=== PATIENT | female | born 1940 | race Caucasian/White ===

== ENCOUNTER 2017-06-02 20:26 | Observation (INO) | payer MEDICARE, BC ==
[~2017-06-02] VITALS: Ht 157.5 cm; Wt 74.8 kg
--- NOTE | ~2017-06-02 | HEMODYNAMI ---
PATIENT:PIERRE GREER MEDICAL RECORD: [id number] : 40 LOCATION:[facility] D.2118 ADMISSION DATE: 06/03/17 Generatedon:06/03/201710:32 Patient name: PIERRE GREER Patient #: [id number] SSN: : 1940 Date of study: 06/03/2017 Page: Of Hemodynamic Procedure Report Patient Data Patient Demographics Procedure consent was obtained First Name: PIERRE Gender: Female Last Name: PERCY : 1940 Patient #: [id number] Age: 76 year(s) Race: Unknown Additional ID: [id number] Contact details Address: [address] [place] [address] State: [place] City: [facility] Zip code: [address] Admission Admission Data Admission Date: 06/03/2017 Admission Time: 1:01 Room #: D.2118 Height (in.): 62 BSA: 1.76 (m2) Height (cm.): 157.48 BMI: 30.24 (kg/m2) Weight (lbs.): 165.35 Weight (kg.): 75 Lab Results Lab Result Date: 06/03/2017 Lab Result Time: 0:00 Biochemistry Name Units Result Min Max BUN mg/dl 17 --(---*)-- 7 18 Creatinine mg/dl 1.3 --(---*)-- 0.6 1.3 CBC Name Units Result Min Max Hematocrit % 38.9 *-(----)-- 42 54 Hemoglobin g/dl 12.7 -*(----)-- 13.5 17.5 Procedure Procedure Types Cath Procedure Diagnostic Procedure [facility] w/Coronaries Sedation Charges Moderate Sedation up to 15 minutes Procedure Description Procedure Date Procedure Date: 06/03/2017 Procedure Start Time: 10:13 Procedure End Time: 10:31 Procedure Staff Name Function Philip Wilks MD Performing Physician Silvia Warren RT Monitor Indra Velazquez RN Nurse Korin Brandan RT Scrub Procedure Data Cath Procedure Fluoroscopy Diagnostic fluoroscopy Total fluoroscopy Time: 1.7 time: 1.7 min min Diagnostic fluoroscopy Total fluoroscopy dose: 411 dose: 411 mGy mGy Contrast Material Contrast Material Type Amount (ml) Isovue 300 47 Entry Location Entry Primary Successful Side Size Upsize Upsize Entry Closure Coronel ccessful Closure Location (Fr) 1 (Fr) 2 (Fr) Remarks Device Remarks Radial Right 6 Fr Mechanical artery Short Compression Femoral Right 5 Fr Exoseal artery Estimated blood loss: 5 ml Diagnostic catheters Device Type Used For End Catheter Placement DIAGNOSTIC [place] 110cm 5 Multi-vessel Fr catheter ([id number]) Angiography Procedure Complications No complications Procedure Medications Medication Administration Route Dosage 0.9% NaCl I.V. 100 ml/hr Oxygen etCO2 Nasal cannula 2 l/min Heparin Flush Bag added to field 2 bags (1000units/500ml NS) Lidocaine 2% added to field 20 Radial Cocktail added to field 1 syringe (Verapomil 2mg/Nitro 400mcg/Heparin 1500units) Zofran I.V. 4 mg Versed I.V. 1 mg Fentanyl I.V. 50 mcg Fentanyl I.V. 25 mcg Versed I.V. 0.5 mg Radial Cocktail I.A. 1 syringe (Verapomil 2mg/Nitro 400mcg/Heparin 1500units) Versed I.V. 0.5 mg Fentanyl I.V. 25 mcg Hemodynamics Rest BSA: 1.76 (m2) HGB: 12.7 (g/dl) O2 Consumption: Estimated: 152.92 (ml/min) O2 Co nsumption indexed: Estimated:86.89 (ml/min/m) Heart Rate: 60 (bpm) Pressure Samples Time Site Value (mmHg) Purpose Heart Use Rate(bpm) 10:25 LV 117/0,12 Snapshot 65 10:26 AO 120/56(82) Pullback 68 10:26 LV 121/12,15 Pullback 68 Gradients Valve Time Site 1 Site 2 Mean SEP/DFP Peak To Heart Use (mmHg) (sec/min) Peak Rate (mmHg) (bpm) Aortic 10:26 LV AO 6 4 1 68 121/12,15 120/56(82) Calculations Valve P-P Mean Valve Index Valve Source Name Gradient Area Flow (cm2) Aortic 1 6 1 6 Snapshots Pre Cath Intra NCS Post Cath Vital Signs Time Heart Resp SPO2 etCO2 NIBP Rhythm Pain Sedation Rate (ipm) (%) (mmHg) (mmHg) Status Level (bpm) 9:57:54 58 19 94 0 122/61(86) NSR 0 (11) 10(A) , No pain 10:02:36 61 14 95 33.3 124/64(93) NSR 0 (11) 10(A) , No pain 10:07:19 58 16 94 0 125/61(93) NSR 0 (11) 10(A) , No pain 10:12:02 60 15 95 9.1 115/63(88) NSR 0 (11) 10(A) , No pain 10:16:42 64 15 95 22 125/65(96) NSR 0 (11) 10(A) , No pain 10:21:21 61 15 95 12.1 109/52(78) NSR 0 (11) 10(A) , No pain 10:25:57 88 15 94 0 96/67(81) NSR 0 (11) 10(A) , No pain 10:30:32 61 18 92 15.9 106/58(84) NSR 0 (11) 10(A) , No pain Medications Time Medication Route Dose Verified Delivered Reason Notes Effectiveness by by 9:56:59 0.9% NaCl I.V. 100 Indra Indra Per ml/hr Marcus Velazquez physician RN RN 9:57:13 Oxygen etCO2 2 l/min Indra Indra Per Nasal Marcus Velazquez physician cannula RN RN 9:57:25 Heparin Flush added 2 bags Indra Indra used for Bag to Marcus Velazquez procedure (1000units/500ml RN RN NS) 9:57:41 Lidocaine 2% added 20ml Indra Indra for local to vial Lorigan Lorigan anesthetic field JACKSON RN 9:57:58 Radial Cocktail added 1 Indra Indra used for (Verapomil to syringe Lorigan Lorigan procedure 2mg/Nitro field JACKSON RN 400mcg/Heparin 1500units) 10:05:00 Zofran I.V. 4 mg Indra Indra for nausea Marcus Velazquez RN RN 10:10:50 Versed I.V. 1 mg Indra Indra for sedation Marcus Velazquez RN RN 10:10:59 Fentanyl I.V. 50 mcg Indra Indra for sedation Marcus Velazquez RN, RN 10:14:30 Fentanyl I.V. 25 mcg Indra Indra for sedation Marcus Velazquez RN, RN 10:14:38 Versed I.V. 0.5 mg Indra Indra for sedation Marcus Velazquez RN, RN 10:16:19 Radial Cocktail I.A. 1 Indra Philip for (Verapomil syringe Marcus Wilks MD vasodilation 2mg/Nitro RN 400mcg/Heparin 1500units) 10:19:06 Versed I.V. 0.5 mg Indra Indra for sedation Marcus Velazquez RN, RN 10:19:12 Fentanyl I.V. 25 mcg Indra Indra for sedation Marcus Velazquez RN, RN Procedure Log Time Note 9:29:24 Patient Height : 62 inches 9:29:34 Patient Weight : 165.35 lbs 9::31 Lab Result : Hemoglobin 12.7 g/dl 9::31 Lab Result : Creatinine 1.3 mg/dl 9::31 Lab Result : BUN 17 mg/dl 9::31 Lab Result : Hematocrit 38.9 % 9:33:19 Diagnostic Cath status Elective 9:33:23 Silvia Warren RT(R) sent for patient. Start room use. 9:33:25 Time tracking: Regular hours (M-F 7:00 - 5:00) 9:33:31 Plan of Care:Hemodynamics will remain stable., Cardiac rhythm will remain stable., Comfort level will be maintained., Respiratory function will remain adequate., Patient/ family verbilizes understanding of procedure., Procedure tolerated without complication., Recovers from procedure without complications.. 9:56:59 0.9% NaCl 100 ml/hr I.V. was administered by Indra Velazquez RN; Per physician; 9:57:01 Vital chart was started 9:57:13 Oxygen 2 l/min etCO2 Nasal cannula was administered by Indra Velazquez RN; Per physician; 9:57:25 Heparin Flush Bag (1000units/500ml NS) 2 bags added to field was administered by Indra Velazquez RN; used for procedure; 9:57:41 Lidocaine 2% 20ml vial added to field was administered by Indra Velazquez RN; for local anesthetic; 9:57:58 Radial Cocktail (Verapomil 2mg/Nitro 400mcg/Heparin 1500units) 1 syringe added to field was administered by Indra Velazquez RN; used for procedure; 10:02:54 Patient received from Med II to CCL 1 Alert and oriented. Tansferred to table in Supine position. 10:02:56 Warm blankets applied, and oli hugger turned on for patient comfort. 10:02:56 Correct patient and procedure confirmed by team. 10:02:58 Signed procedure consent form obtained from patient. 10:03:03 ECG and BP/O2 sat monitors applied to patient. 10:03:06 Baseline sample Acquired. 10:03:13 Rhythm: sinus rhythm 10:03:14 Full Disclosure recording started 10:03:19 H&P Date Dictated: 06/03/2017 New H&P dictated by physician.. 10:03:21 Pre-procedure instructions explained to patient. 10:03:21 Pre-op teaching completed and patient verbalized understanding. 10:03:27 Family unavailable. 10:03:28 Patient NPO since Midnight. 10:03:31 Is the patient allergic to Iodine/contrast media? No. 10:03:33 Was the patient premedicated? No 10:03:35 Is patient on blood thinner?No 10:03:37 Patient diabetic? No. 10:03:50 Previous problem with sedation/anesthesia? Yes severe nausea 10:03:56 Snore? Yes 10:03:57 Sleep apnea? No 10:03:58 Deviated septum? No 10:03:59 Opens mouth fully? Yes 10:04:00 Sticks out tongue? Yes 10:04:03 Airway obstruction? No ? 10:04:06 Dentures? No ? 10:04:47 Pre procedure: right dorsailis pedis pulse 2+ Normal; easily identifiable; not easily obliterated 10:04:51 Pre procedure: left dorsailis pedis pulse 2+ Normal; easily identifiable; not easily obliterated 10:04:55 Patient pain scale 0/10 ?. 10:05:00 Zofran 4 mg I.V. was administered by Indra Velazquez RN; for nausea; 10:05:36 IV patent on arrival in left forearm with 0.9% NaCl at KVO. 10:05:39 Lab results completed and on chart. 10:05:44 Right Radial & Right Groin area was prepped with chlora-prep and draped in sterile fashion 10:05:45 Alarms reviewed by R. N. 10:05:46 Sharps counted by scrub and verified by R.N. 10:05:48 Physician arrived 10:05:49 --------ALL STOP TIME OUT------ 10:05:50 Final Timeout: patient, procedure, and site verified with staff and physician. All members of the team are in agreement. 10:05:53 Right Radial & Right Groin site verified by team. 10:05:56 Physical assessment completed. ASA score P 2 - A patient with mild systemic disease as per Philip Wilks MD. 10:06:02 Sedation plan: IV Moderate Sedation Medication:Versed, Fentanyl 10:06:05 Use device set Radial Dx or PCI 10:06:07 ACIST Syringe (31615) opened to sterile field. 10:06:07 Medline Cath Pack ([id number]) opened to sterile field. 10:06:08 Bag Decanter (2002S) opened to sterile field. 10:06:09 DIAGNOSTIC WIRE .035 260cm J wire (194152) opened to sterile field. 10:06:09 ACIST Hand Control (10764) opened to sterile field. 10:06:10 ACIST Manifold (56932) opened to sterile field. 10:06:10 Tegaderm 4 x 4 (1626W) opened to sterile field. 10:06:12 MBrace Wrist Support ([id number]) opened to sterile field. 10:06:23 SHEATH 6Fr Prelude Radial ([id number]) opened to sterile field. 10:07:58 Zero performed for pressure channel P1 10:10:50 Versed 1 mg I.V. was administered by Indra Velazquez RN; for sedation; 10:10:59 Fentanyl 50 mcg I.V. was administered by Indra Velazquez RN; for sedation; 10:13:32 Procedure started. 10:13:38 Local anesthetic to right radial artery with Lidocaine 2% by Philip Wilks MD.INITIAL ACCESS ONLY 10:13:49 A 6 Fr Short sheath was inserted into the Right Radial artery 10:14:30 Fentanyl 25 mcg I.V. was administered by Indra Velazquez RN; for sedation; 10:14:38 Versed 0.5 mg I.V. was administered by Indra Velazquez RN; for sedation; 10:16:19 Radial Cocktail (Verapomil 2mg/Nitro 400mcg/Heparin 1500units) 1 syringe I.A. was administered by Philip Wilks MD; for vasodilation; 10:17:06 A DIAGNOSTIC [place] 110cm 5 Fr catheter ([id number]) was advanced over the wire and used for Multi-vessel Angiography. 10:18:25 Catheter removed. 10:18:28 Patient has radial loop; attempting femoral access 10:18:37 Local anesthetic to right femoral artery with Lidocaine 2% by Philip Wilks MD.ADDITIONAL ACCESS 10:18:43 SHEATH 5Fr Prelude ([id number]) opened to sterile field. 10:18:56 A 5 Fr sheath was inserted into the Right Femoral artery 10:19:06 Versed 0.5 mg I.V. was administered by Indra Velazquez RN; for sedation; 10:19:12 Fentanyl 25 mcg I.V. was administered by Indra Velazquez RN; for sedation; 10:20:45 DIAGNOSTIC Multipack 5Fr catheter set ([id number]) opened to sterile field. 10:21:29 5 Fr jl 4 guide catheter was inserted over the wire 10:22:47 LCA angiography performed. 10:22:50 Injector settings: Ml/sec: 3, Volume: 6, 10:22:52 Catheter removed. 10::58 5 Fr 3drc guide catheter was inserted over the wire 10:23:42 RCA angiography performed. 10:23:45 Injector settings: Ml/sec: 3, Volume: 6, 10:24:21 Catheter removed. 10:24:29 5 Fr pigtail guide catheter was inserted over the wire 10:25:40 LV hemodynamics recorded. 10:25:41 LV gram done using MADRIGAL 10::43 Injector settings: Ml/sec: 5, Volume: 15, 10:25:58 EF : 60 % 10:27:32 Catheter removed. 10:28:51 TR BAND Standard ([id number]) opened to sterile field. 10:29:01 EXOSEAL 5Fr (EX500) opened to sterile field. 10:29:47 Sheath removed intact; hemostasis achieved with Mechanical Compression to the Right Radial artery. 10:29:58 Sheath removed intact; hemostasis achieved with Exoseal to the Right Femoral artery. 10:30:00 Procedure ended.(Physican Out) 10:30:10 Fluoroscopy time 01.70 minutes. 10:30:14 Fluoroscopy dose: 411 mGy 10:30:14 Flurop Dose total: 411 10:30:27 Contrast amount:Isovue 300 47ml. 10:30:30 Sharps counted by scrub and verified by R.N. 10:30:33 Insertion/operative site no bleeding no hematoma. 10:30:36 TR band inflated with 10cc of air. 10:30:40 Post-op/insertion site Right Femoral artery dressed using a 4 x 4 and Tegaderm. 10:30:42 Post right femoral artery:stable 10:30:44 Post Procedure Pulses reassessed and unchanged 10:30:47 Post procedure rhythm: unchanged. 10:30:49 Estimated blood loss: 5 ml 10:30:51 Post procedure instruction explained to patient.Patient verbalizes understanding. 10:30:51 Patient needs reinforcement of post procedure teaching. 10:31:07 Procedure type changed to Cath procedure, Diagnostic procedure, LHC, LHC w/Coronaries, Sedation Charges, Moderate Sedation up to 15 minutes 10:31:08 Procedure and supply charges have been captured, reviewed, submitted and are correct. 10:31:12 Procedure Complication : No complications 10:31:16 Vital chart was stopped 10:31:17 See physician's report for complete and final results. 10:31:28 Report given to Med II. 10:31:32 Patient transfered to [facility] II with Stretcher. 10:31:34 Procedure ended. 10:31:34 Full Disclosure recording stopped 10:31:38 End room use (Document Last) Device Usage Item Name Manufacture Quantity Catalog Number Hospital Part Current M inimal Lot# / Charge Number Stock Stock Serial# Code ACIST Syringe Acist 1 64748 510808 373596 [id number] 2 0 (38202) [employer] Medline Cath Cardinal 1 [id number] 099782 52649 715943 5 Pack Health ([id number]) Bag Decanter Microtek 1 125670 11288 221753 5 () [employer] Inc. DIAGNOSTIC WIRE St Moy 1 909966 643325 352939 738291 3 0 .035 260cm J wire (346739) ACIST Hand Acist 1 89122 246284 014682 810681 5 Control (46888) [employer] ACIST Manifold Acist 1 31026 070015 656247 952981 5 (82198) [employer] Inc Tegaderm 4 x 4 3M 1 1626W 555929 119711 384920 5 (1626W) MBrace Wrist Advanced 1 140-0250-00 863222 71821 589109 5 Support Vascular ([id number]) Dynamics SHEATH 6Fr Merit 1 [id number] 043826 338311 497915 5 Prelude Radial Medical ([id number]) DIAGNOSTIC Terumo 1 40-5013 142420 909073 101866 5 [place] 110cm 5 Fr catheter (840246) SHEATH 5Fr Merit 1 [id number] 761656 364122 456118 5 Prelude Medical ([id number]) DIAGNOSTIC Cardinal 1 [id number] 392917 05160 888821 3 0 Multipack 5Fr Health catheter set ([id number]) TR BAND Terumo 1 [id number] 823515 550671 994434 4 0 Standard ([id number]) EXOSEAL 5Fr Cardinal 1 EX500 856909 324527 496824 1 0 (EX500) Health Signature Audit [place] Stage Time Signature Unsigned Intra-Procedure 06/03/2017 Silvia Warren 10:32:08 AM RT(R) Signatures Monitor : Silvia Warren RT Signature : Date : Time : [id number] [place] [address]
[2017-06-02 21:12] LABS: BASOPHILS 0.4 % (0-2); EOSINOPHILS 3.4 % (0-7); HEMATOCRIT 38.1 % (36.0-48.0); HEMOGLOBIN 12.9 g/dL (12-16); IMMATURE GRANULOCYTES 0.3 % (0-5); MCH 29.5 pg (26.0-34.0); MCHC 33.9 g/dL (31.0-37.0); MCV 87.2 fL (80.0-100.0); MEAN PLATELET VOLUME 11.2 fL (7.4-10.4); MONOCYTES 11.3 % (2-11); NEUTROPHILS 38.6 % (40-80); PLATELET COUNT 159 10x3/uL (130-400); RBC 4.37 10x6/uL (4.00-5.40); RDW 14.6 % (11.5-14.5)
[2017-06-02 21:24] LABS: ALBUMIN 3.8 g/dL (3.4-5.0); ALKALINE PHOSPHATASE 66 U/L (46-116); ALT (SGPT) 23 U/L (10-68); BILIRUBIN - TOTAL 0.37 mg/dL (0.2-1.3); CALC OSMOLALITY 273 mosm/kg (275-300); CALCIUM 8.5 mg/dL (8.5-10.1); CHLORIDE - SERUM 102 mmol/L (98-107); CREATININE - SERUM 1.4 mg/dL (0.6-1.3); GLUCOSE 95 mg/dL (74-106); POTASSIUM - SERUM 3.9 mmol/L (3.5-5.1); PROTEIN - SERUM 6.5 g/dL (6.4-8.2); SODIUM 136 mmol/L (136-145); UREA NITROGEN 18 mg/dL (7-18); eGFR NON AFRICAN AMERICAN 39 mL/min (90-120)
[2017-06-02 21:36] LABS: CKMB 1.8 U/L (0.0-3.6); CREATINE KINASE 134 UL (21-215)
[2017-06-02 22:12] LABS: TROPONIN-I < 0.017 ng/mL (0.000-0.060)
[2017-06-03] MEDS ORDERED: NEURONTIN 300300 MG PO (03:16)
[2017-06-03] MEDS ORDERED: NORVASC2.5 MG PO (03:17)
[2017-06-03] MEDS ORDERED: BYSTOLIC2.5 MG PO (03:17)
[2017-06-03] MEDS ORDERED: TEMAZEPAM30 MG PO (03:18)
[2017-06-03] MEDS ORDERED: OMEPRAZOLE40 MG PO (03:18)
[2017-06-03] MEDS ORDERED: BAYER CHEWABLE81 MG PO (03:19)
[2017-06-03 03:43] VITALS: BP 107/64; BMI 29.3
[2017-06-03 04:00] VITALS: BP 121/59
[2017-06-03 06:44] LABS: CKMB 1.6 U/L (0.0-3.6); TROPONIN-I < 0.017 ng/mL (0.000-0.060)
[2017-06-03 07:48] LABS: BASOPHILS 0.4 % (0-2); EOSINOPHILS 4.6 % (0-7); HEMATOCRIT 38.9 % (36.0-48.0); HEMOGLOBIN 12.7 g/dL (12-16); IMMATURE GRANULOCYTES 0.2 % (0-5); LYMPHOCYTES 42.1 % (15-50); MCH 28.9 pg (26.0-34.0); MCHC 32.6 g/dL (31.0-37.0); MCV 88.6 fL (80.0-100.0); MONOCYTES 12.1 % (2-11); NEUTROPHILS 40.6 % (40-80); PLATELET COUNT 158 10x3/uL (130-400); RBC 4.39 10x6/uL (4.00-5.40); RDW 14.7 % (11.5-14.5); WBC 10.3 10x3/uL (4.8-10.8)
[2017-06-03 07:54] LABS: ANION GAP 16.5 mmol/L (8-16); CALCIUM 8.4 mg/dL (8.5-10.1); CARBON DIOXIDE 24.5 mmol/L (21.0-32.0); CREATININE - SERUM 1.3 mg/dL (0.6-1.3)
[2017-06-03 12:59] VITALS: Ht 157.5 cm; Wt 74.8 kg
== END 2017-06-03 13:24 | disposition home or self-care (01) ==
LOC: D.ER 20:26 → OBSVTIME 06-03 01:01 → D.M2 06-03 01:01 → D.EDHOLD 06-03 01:01 → D.M2 06-03 01:08 → D.CLR 06-03 10:54
PROVIDERS: Emergency Medicine; Internal Medicine Cardiovascular Disease
DX: R07.89 Other chest pain (principal); Z82.49 Family history of ischemic heart disease and other diseases of the circulatory system; I10 Essential (primary) hypertension; K21.9 Gastro-esophageal reflux disease without esophagitis

== ENCOUNTER 2020-04-11 12:28 | Emergency (ER) | payer MEDICARE, BC ==
[~2020-04-11] VITALS: Ht 157.5 cm; Wt 75.0 kg
[~2020-04-11 12:28] MED LIST: BAYER CHEWABLE81 MG PO; BYSTOLIC2.5 MG PO; NEURONTIN 300300 MG PO; NORVASC2.5 MG PO; OMEPRAZOLE40 MG PO; TEMAZEPAM30 MG PO
[2020-04-11 12:32] VITALS: Ht 157.5 cm; Wt 75.0 kg
[2020-04-11 14:15] LABS: HEMATOCRIT 41.4 % (36.0-48.0); HEMOGLOBIN 13.5 g/dL (12-16); LYMPHOCYTES 29.9 % (15-50); MCH 28.8 pg (26.0-34.0); MCHC 32.6 g/dL (31.0-37.0); MCV 88.5 fL (80.0-100.0); MEAN PLATELET VOLUME 11.7 fL (7.4-10.4); NEUTROPHILS 57.6 % (40-80); RBC 4.68 10x6/uL (4.00-5.40); RDW 14.1 % (11.5-14.5); WBC 7.9 10x3/uL (4.8-10.8)
[2020-04-11 14:29] LABS: PLATELET COUNT 202 10x3/uL (130-400)
[2020-04-11 14:33] LABS: CALC OSMOLALITY 275 mosm/kg (275-300); CALCIUM 8.9 mg/dL (8.5-10.1); CARBON DIOXIDE 25.5 mmol/L (21.0-32.0); CHLORIDE - SERUM 102 mmol/L (98-107); CREATININE - SERUM 1.3 mg/dL (0.6-1.3); GLUCOSE 121 mg/dL (74-106); POTASSIUM - SERUM 3.7 mmol/L (3.5-5.1); SODIUM 137 mmol/L (136-145); UREA NITROGEN 16 mg/dL (7-18); eGFR NON AFRICAN AMERICAN 42 mL/min (90-120)
[2020-04-11 14:47] LABS: ALKALINE PHOSPHATASE 75 U/L (30-120); ALT (SGPT) 23 U/L (10-68); BILIRUBIN - TOTAL 0.36 mg/dL (0.2-1.3); CREATINE KINASE 105 UL (21-215); PRO BNP 1062 pg/mL (0-450); PROTEIN - SERUM 6.6 g/dL (6.4-8.2); TROPONIN-I < 0.017 ng/mL (0.000-0.060)
[2020-04-11 16:49] LABS: BILIRUBIN NEGATIVE (NEGATIVE); KETONE NEGATIVE (NEGATIVE); NITRITE NEGATIVE (NEGATIVE); UROBILINOGEN NORMAL mg/dL (< 2)
[2020-04-11 16:54] LABS: BACTERIA FEW HPF (NONE SEEN); SQUAMOUS EPITHELIAL 0-5 HPF (0-4); WHITE CELLS - URINE 0-5 HPF (0-4)
[2020-04-11] MEDS ORDERED: HYDROCODON-ACE1 EAC7 PO (18:39)
[2020-04-11 19:16] VITALS: BP 127/85
== END 2020-04-11 19:16 | disposition home or self-care (01) ==
LOC: D.ER 12:28
PROVIDERS: Emergency Medicine
DX: R07.89 Other chest pain (principal)